=== PATIENT | female | born 1995 | race Caucasian/White ===

== ENCOUNTER 2023-04-18 15:24 | Emergency (ER) | payer OTHER ==
[~2023-04-18] VITALS: Ht 160 cm; Wt 113.0 kg
[2023-04-18] MEDS ORDERED: ALL10TAB2 PO (16:14)
[2023-04-18 17:16] LABS: RSV AMPLIFICATION NEGATIVE (NEGATIVE)
[2023-04-18] MEDS ORDERED: ALBU2.5V10 NEB (20:50)
[2023-04-18] MEDS ORDERED: BENZ200C70 PO (20:50)
[2023-04-18] MEDS ORDERED: NASA1SPR NARES (20:50)
[2023-04-18 21:05] VITALS: BP 127/72; TEMP 98.1; O2SAT 99
== END 2023-04-18 21:07 | disposition home or self-care (01) ==
LOC: M ED 15:24
DX: R05.9 Cough, unspecified (principal); Z88.2 Allergy status to sulfonamides; Z88.8 Allergy status to other drugs, medicaments and biological substances; Z79.899 Other long term (current) drug therapy

== ENCOUNTER 2024-10-24 23:24 | Emergency (ER) | payer OTHER ==
[~2024-10-24] VITALS: Ht 160 cm; Wt 113.6 kg
[~2024-10-24 23:24] MED LIST: ALBU2.5V10 NEB; ALL10TAB2 PO; BENZ200C70 PO; NASA1SPR NARES
[2024-10-24] MEDS ORDERED: AMPH1CAP9 (23:30)
[2024-10-24] MEDS ORDERED: IBUP80TA PO (23:34)
[2024-10-25] MEDS: diazePAM 10MG/2ML SYRINGE IM ONE (02:41)
[2024-10-25] MEDS: methylPREDNISolone 125MG 2ML VIAL IM ONE (02:41)
[2024-10-25] MEDS: KETOROLAC 30 MG/ML 1ML VIAL IV ONE (05:00)
[2024-10-25] MEDS ORDERED: PERC5TAB12 PO (12:03)
[2024-10-25 12:17] VITALS: BP 138/78; TEMP 97.6; O2SAT 96
== END 2024-10-25 13:12 | disposition home or self-care (01) ==
LOC: M ED 23:24
DX: M51.27 Other intervertebral disc displacement, lumbosacral region (principal); Z79.899 Other long term (current) drug therapy; Z88.2 Allergy status to sulfonamides
CPT/HCPCS: 72131; 72148; 96372; 96374; 99284; J1885; J2919; J3360